=== PATIENT | female | born 1990 | race Caucasian/White ===

== ENCOUNTER 2016-08-20 19:04 | Emergency (ER) | payer OTHER ==
[~2016-08-20] VITALS: Ht 160 cm; Wt 69.8 kg
[~2016-08-20 19:04] MED LIST: LORT7.5T3 PO; Z.0.BCPILL PO
[2016-08-20 19:10] VITALS: BP 150/72; PULSE 120; RESP 12; TEMP 98.6; O2SAT 98
[2016-08-20] MEDS ORDERED: SODIUM CHLOR 0.9% 1000 ML INJ 1,000 ML IV ONE (19:28)
--- NOTE | 2016-08-20 19:34 | PD ---
HPI Chief Complaint: Related Problem Time Seen by Provider: 19:22 Travel History International Travel<30 days: No Contact w/Intl Traveler<30days: No Traveled to known affect area: No History of Present Illness HPI The patient is a 25-year-old female who presents emergency department for and abdominal cramping. The patient's last menstrual cycle was at the beginning of July, she took a test 2 weeks ago which was negative, however, took 3 tests yesterday which were positive. The patient now complains of lower abdominal cramping and also notes intermittent spotting over the last 2 days. The patient denies any nausea, vomiting, or significant abdominal pain. This is her first . The patient recently moved to the local area from [place], [place], has an appointment with an operations administrator in September, however, cannot recall the name of the operations administrator. She does not have a local primary physician. She denies any chronic medical problems, medications, but has had a LEEP performed. PFS Past Medical History Medical History: Denies Significant Hx Past Surgical History Narrative Surgical LEEP procedure Social History Alcohol Use: No Tobacco Use: No Substance Use: No Allergies-Medications (Allergen,Severity, Reaction): Coded Allergies: Penicillin (Verified Allergy, Severe, HIVES, 08/20/16) Amoxicillin (Verified Allergy, Intermediate, 08/20/16) Reported Meds & Prescriptions Reported Meds & Active Scripts Active No Active Prescriptions or Reported Medications Review of Systems Except as stated in HPI: all other systems reviewed are Neg General / Constitutional: No: Fever Cardiovascular: No: Chest Pain or Discomfort Respiratory: No: Shortness of Breath Gastrointestinal: No: Nausea, Vomiting, Abdominal Pain Genitourinary: Positive: Pelvic Pain (cramping), Vaginal Bleeding (spotting), Other (as noted in the history of present illness), No: Dysuria Physical Exam Narrative GENERAL: Awake, alert, pleasant 25-year-old female who appears her stated age and is in no acute respiratory distress. SKIN: Focused skin assessment warm/dry. HEAD: Atraumatic. Normocephalic. EYES: Pupils equal and round. No scleral icterus. No injection or drainage. ENT: No nasal bleeding or discharge. Mucous membranes pink and moist. NECK: Trachea midline. No JVD. GASTROINTESTINAL: Abdomen soft, non-tender, nondistended. No rebound tenderness. Back: No CVA tenderness. MUSCULOSKELETAL: No obvious deformities. No clubbing. No cyanosis. No edema. NEUROLOGICAL: Awake and alert. No obvious cranial nerve deficits. Motor grossly within normal limits. Normal speech. PSYCHIATRIC: Appropriate mood and affect; insight and judgment normal. Data Data Last Documented VS Vital Signs Date Time Temp Pulse Resp B/P Pulse Ox O2 Delivery O2 Flow Rate FiO2 08/20/16 20:12 112 98 08/20/16 19:10 98.6 12 150/72 Orders Beta Hcg (Quant/Titer) (08/20/16 19:28) Complete Rh (08/20/16 19:28) Us Pelvis (Ques Pr/Ect)W Trans (08/20/16 ) Urinalysis - C+S If Indicated (08/20/16 19:28) Sodium Chlor 0.9% 1000 Ml Inj (Ns 1000 M (08/20/16 19:28) Ed Urine Pregnancytest Poc (08/20/16 19:28) Labs Laboratory Tests Test 08/20/16 19:45 Urine Color YELLOW Urine Turbidity CLEAR Urine pH 5.5 Urine Specific [place] 1.027 Urine Protein NEG mg/dL Urine Glucose (UA) NEG mg/dL Urine Ketones NEG mg/dL Urine Occult Blood NEG Urine Nitrite NEG Urine Bilirubin NEG Urine Leukocyte Esterase NEG Urine RBC 0-2 /hpf Urine WBC 0-2 /hpf Urine Squamous Epithelial > 8 /hpf Cells Urine Bacteria FEW /hpf Microscopic Urinalysis Comment CULT NOT INDICATED Human Chorionic Gonadotropin, 884 MIU/ML Quant Blood Type A POSITIVE Rho(D) Type POSITIVE MDM Medical Decision Making Medical Screen Exam Complete: Yes Emergency Medical Condition: Yes Medical Record Reviewed: Yes Interpretation(s) Laboratory Tests Test 08/20/16 19:45 Urine Color YELLOW Urine Turbidity CLEAR Urine pH 5.5 Urine Specific [place] 1.027 Urine Protein NEG mg/dL Urine Glucose (UA) NEG mg/dL Urine Ketones NEG mg/dL Urine Occult Blood NEG Urine Nitrite NEG Urine Bilirubin NEG Urine Leukocyte Esterase NEG Urine RBC 0-2 /hpf Urine WBC 0-2 /hpf Urine Squamous Epithelial > 8 /hpf Cells Urine Bacteria FEW /hpf Microscopic Urinalysis Comment CULT NOT INDICATED Human Chorionic Gonadotropin, 884 MIU/ML Quant Blood Type A POSITIVE Rho(D) Type POSITIVE Ultrasound of the pelvis reveals small cystic area seen in the uterus. These are too small to confirm its gestational sacs. The cyst at the cervix is likely an incidental nabothian cyst. The lack of confirmation of an intrauterine gestation does not rule out an ectopic . Follow-up is recommended. 2.1 cm complex mass in the right ovary likely related to corpus luteum. Differential Diagnosis Differential diagnosis includes , threatened AB, ectopic , UTI , dehydration. Narrative Course Bedside UA test was obtained, was positive. Therefore, quantitative beta hCG was sent to lab for formal ultrasound was ordered to evaluate for IUP versus ectopic . UA was sent to lab. The patient was administered 1 L of IV fluids. The patient's Rh status is a positive, therefore, no indication for RhoGAM. Beta hCG is 884. Ultrasound reveals small cystic area seen in the uterus, too small to confirm if they are gestational sacs. Therefore, patient will need repeat beta hCG in 72 hours. Return if symptoms worsen or progress. The patient was advised this could be a threatened , normal , or ectopic . Diagnosis Primary Impression: Threatened Patient Instructions: General Instructions Additional Instructions: Repeat beta hCG in 72 hours. vitamin daily. Follow-up with her operations administrator. Return immediately if symptoms worsen or progress. Med/Other Pt SpecificInfo: No Change to Meds Scripts No Active Prescriptions or Reported Meds Disposition: 01 DISCHARGE HOME Condition: Stable Dave Mane MD August 20, 2016 19:34
[2016-08-20 19:58] LABS: BLOOD, URINE NEG (NEG); GLUCOSE,URINE NEG (NEG); KETONE, URINE NEG (NEG); NITRITE,URINE NEG (NEG); PH, URINE 5.5 (5.0-8.5)
[2016-08-20 20:03] LABS: URINE COLOR YELLOW (YELLW/STRAW); WBC, URINE 0-2 /hpf (0-5)
[2016-08-20 20:04] LABS: BACTERIA, URINE FEW /hpf; COMMENT (UR) CULT NOT INDICATED; CULTURE IF INDICATED CULT NOT INDICATED; RBC, URINE 0-2 /hpf (0-3); SQUAMOUS EPITHELIAL CELL URINE > 8 /hpf (0-5)
[2016-08-20 20:12] VITALS: PULSE 112; O2SAT 98
[2016-08-20 20:16] LABS: BETA HCG QUANT 884 MIU/ML (0-5)
--- NOTE | 2016-08-20 21:28 | RADHPO ---
EXAM DATE/TIME: 08/20/2016 20:43 [facility] COMPARISON: No previous studies available for comparison. INDICATIONS : Pelvic cramping. LAB(S): Beta-hC MEDICAL HISTORY : . SURGICAL HISTORY : None. ENCOUNTER: Initial ACUITY: 1 day PAIN SCORE: 2/10 LOCATION: Bilateral pelvis MEASUREMENTS: UTERUS: 8.0 x 4.0 x 5.9 cm ENDOMETRIAL STRIPE: >20 mm RIGHT OVARY: 4.1 x 2.2 x 2.0 cm LEFT OVARY: 3.9 x 1.5 x 2.6 cm FREE FLUID: No FINDINGS: UTERUS: There are two 0.4 cm cysts seen in the uterus. One is in the endometrial cavity. The other one is at the cervix. An embryonic poles and yolk sacs are not seen. RIGHT OVARY: There is a 2.1 x 1.7 x 2.1 cm hypoechoic area seen in the right ovary. LEFT OVARY: Ovary contains no mass or significant cystic lesion. MISCELLANEOUS: No free fluid. CONCLUSION: 1. Small cystic area seen in the uterus. These are too small to confirm its gestational sacs. The cys t at the cervix is likely an incidental nabothian cyst. The lack of confirmation of an intrauterine gestation tati not rule out an ectopic . Follow up is recommended. 2. 2.1 cm complex mass in the right ovary likely related to a corpus luteum. Merlin Mcdonnell MD on August 20, 2016 at 21:22 Board Certified Radiologist. This report was verified electronically.
[2016-08-20 21:32] VITALS: BP 103/55; PULSE 89; RESP 16; O2SAT 97
== END 2016-08-20 21:44 | disposition home or self-care (01) ==
LOC: PHED 19:04
DX: O20.0 Threatened abortion (principal); R10.9 Unspecified abdominal pain; Z98.890 Other specified postprocedural states
CPT/HCPCS: 76700; 76817; 81001; 84702; 84703; 86901; 96360; 99284; J7030

== ENCOUNTER 2016-08-24 13:26 | Emergency (ER) | payer OTHER ==
[~2016-08-24] VITALS: Ht 160 cm; Wt 71.5 kg
[2016-08-24 13:30] VITALS: BP 116/78; PULSE 112; RESP 17; TEMP 98.7; O2SAT 97
--- NOTE | 2016-08-24 13:39 | PD ---
HPI Chief Complaint: Abnormal Results Time Seen by Provider: 13:37 Travel History International Travel<30 days: No Contact w/Intl Traveler<30days: No Traveled to known affect area: No History of Present Illness HPI 25-year-old female here with first , and recent visit [address] Mane who recommended follow-up hCG to ensure increasing hCG numbers and decreasing symptoms. 3 days ago the patient's symptoms including cramping, but she states now she has no pain or other symptoms. Patient is scheduled for follow-up with [facility] on September 08. Her hCG 3 days ago was 884. Her urine was positive at that time. Ultrasound was indeterminate for gestational sac. There is a risk for demise, ectopic . Patient blood type is positive. She is allergic to amoxicillin and penicillin. [facility] Past Medical History ?: LMP: 07/11/16 Social History Alcohol Use: No Tobacco Use: No Substance Use: No Allergies-Medications (Allergen,Severity, Reaction): Coded Allergies: Penicillin (Verified Allergy, Severe, HIVES, 08/24/16) Amoxicillin (Verified Allergy, Mild, HIVES, 08/24/16) Reported Meds & Prescriptions Reported Meds & Active Scripts Active No Active Prescriptions or Reported Medications Review of Systems Except as stated in HPI: all other systems reviewed are Neg General / Constitutional: No: Fever Eyes: No: Visual changes HENT: No: Headaches Cardiovascular: No: Chest Pain or Discomfort Respiratory: No: Shortness of Breath Gastrointestinal: No: Abdominal Pain Genitourinary: No: Dysuria Musculoskeletal: No: Pain Skin: No Rash Neurologic: No: Weakness Psychiatric: No: Depression Endocrine: No: Polydipsia Hematologic/Lymphatic: No: Easy Bruising Physical Exam Narrative GENERAL:Cheerful and in no acute distress SKIN: Warm and dry. Normal color. Normal turgor. HEAD: Atraumatic. Normocephalic. EYES: Pupils equal and round. No scleral icterus. No injection or drainage. ENT: No nasal bleeding or discharge. Mucous membranes pink and moist. NECK: Trachea midline. Supple and nontender. CARDIOVASCULAR: Regular rate and rhythm. RESPIRATORY: No accessory muscle use. Clear to auscultation. Breath sounds equal bilaterally. GASTROINTESTINAL: Abdomen soft, non-tender, nondistended. Hepatic and splenic margins not palpable. MUSCULOSKELETAL: Extremities without clubbing, cyanosis, or edema. No obvious deformities. NEUROLOGICAL: Awake and alert. No obvious cranial nerve deficits. Motor grossly within normal limits. Five out of 5 muscle strength in the arms and legs. Normal speech. PSYCHIATRIC: Appropriate mood and affect; insight and judgment normal. Data Data Last Documented VS Vital Signs Date Time Temp Pulse Resp B/P Pulse Ox O2 Delivery O2 Flow Rate FiO2 08/24/16 13:30 98.7 112 17 116/78 97 Orders Beta Hcg (Quant/Titer) (08/24/16 13:40) Labs Laboratory Tests Test 08/24/16 13:55 Human Chorionic Gonadotropin, 3198 MIU/ML Quant MDM Medical Decision Making Medical Screen Exam Complete: Yes Emergency Medical Condition: Yes Differential Diagnosis . Need for blood work. Questionable . Narrative Course Patient is medically stable and without complaint on exam. Repeat hCG is ordered. Repeat hCG is 3198. Patient to follow with [facility] as scheduled on September 08. Patient has no need to follow-up here unless she has increased cramping or other symptoms. Diagnosis Primary Impression: Qualified Code: Z3A.01 - Less than 8 weeks gestation of Referrals: Executive Creative Director Patient Instructions: General Instructions Additional Instructions: Patient is medically stable and without complaint on exam. Repeat hCG is ordered. Repeat hCG is 3198. Patient to follow with [facility] as scheduled on September 08. Patient has no need to follow-up here unless she has increased cramping or other symptoms. Med/Other Pt SpecificInfo: Prescription(s) given Scripts No Active Prescriptions or Reported Meds Disposition: 01 DISCHARGE HOME Condition: Stable Gabino Machuca August 24, 2016 13:39
[2016-08-24 14:39] LABS: BETA HCG QUANT 3198 MIU/ML (0-5)
== END 2016-08-24 15:00 | disposition home or self-care (01) ==
LOC: PHEFT 13:26
DX: Z34.91 Encounter for supervision of normal pregnancy, unspecified, first trimester (principal); Z32.01 Encounter for pregnancy test, result positive; Z3A.01 Less than 8 weeks gestation of pregnancy
CPT/HCPCS: 84702; 99283

== ENCOUNTER 2016-12-23 10:19 | Emergency (ER) | payer OTHER ==
[2016-12-23] MEDS ORDERED: PROM25TA10 PO (11:08)
--- NOTE | 2016-12-23 11:09 | PD ---
HPI Chief Complaint Nausea vomiting diarrhea Date Seen: Dec 23, 2016 Time Seen: 11:00 Travel History International Travel<30 Days: No Contact w/Intl Traveler<30Days: No Known Affected Area: No History of Present Illness HPI 26-year-old white female at [address] Palomino for care presents complaining of nausea vomiting and diarrhea for one day, states that yesterday she was fine before that finding has not been a long-term thing, she feels baby moves heart tones are good and no contractions seen, denies bleeding or leakage of fluid Weeks Gestation: 22 Para: 0 : 1 History Social History Alcohol Use: No Tobacco Use: No Substance Abuse: No Allergies-Medications (Allergen,Severity, Reaction): Coded Allergies: penicillin G (Unverified Allergy, Severe, HIVES, 11/15/16) amoxicillin (Unverified Allergy, Mild, HIVES, 11/15/16) Home Meds No Active Prescriptions or Reported Meds Review of Systems General / Constitutional: No: Fever, Weight Gain, Chills, Other Eyes: No: Diploplia, Blurred Vision, Visual changes, Pain, Photophobia HENT: No: Headaches, Vertigo, Lightheadedness Cardiovascular: No: Irregular Rhythm, Chest Pain or Discomfort, Palpitations, Tachycardia, Syncope, Varicosities, Edema, Cyanosis Respiratory: No: Cough, Short of Breath, Other Gastrointestinal: Nausea, Vomiting, Diarrhea Genitourinary: No: Decreased Urinary Output, Oliguria Musculoskeletal: No: Limited ROM, Weakness, Cramping, Edema, Pain Skin: No Rash, No Itching, No Dryness, No Lumps, No Change in Pigmentation, No Change in Nails, No Alopecia, No Lesions Neurologic: No: Weakness, Dizziness, Syncope, Focal Abnormalities, Coordination Problem, Headache, Slurred Speech, Seizures Psychiatric: No: Depression, Suicidal Ideations, Homicidal Ideation Endocrine: No: Heat Intolerance, Cold Intolerance, Polydipsia, Polyuria, Other Physical Exam Narrative GENERAL: Well-nourished, well-developed patient. SKIN: Warm and dry. HEAD: Normocephalic and atraumatic. EYES: No scleral icterus. No injection or drainage. ENT: No nasal drainage noted. Mucous membranes pink. Airway patent. NECK: Supple, trachea midline. No JVD. CARDIOVASCULAR: Regular rate and rhythm without murmurs, gallops, or rubs. RESPIRATORY: Breath sounds equal bilaterally. No accessory muscle use. BREASTS: Bilateral exam showed no masses , no retractions, no nipple discharge. ABDOMEN/GI: Abdomen soft, non-tender, bowel sounds present, no rebound, no guarding Gravid to [22-] weeks size Fundal Height: [at umbilicus-] Membranes: [intact ] Uterine Contractions: [none-] FHT's: 140s EXTREMITIES: No cyanosis or edema. BACK: Nontender without obvious deformity. No CVA tenderness. NEUROLOGICAL: Awake and alert. Motor and sensory grossly within normal limits. Five out of 5 muscle strength in all muscle groups. Normal speech. Data Data Orders Orders Vital Signs (Adult) .ON ADMISSION (12/23/16 10:58) ^ Labor Status (12/23/16 10:58) Lactated Ringer's 1000 Ml Inj (Lr 1000 M (12/23/16 10:58) Ondansetron Inj (Zofran Inj) (12/23/16 11:00) Metoclopramide Inj (Reglan Inj) (12/23/16 11:00) MDM Interpretation(s) 26-year-old white female at 22 weeks with nausea vomiting diarrhea for one day. Patient reports a daycare and postop all kinds of toddler's and there germs viruses, she has no bleeding or leakage of fluid heart tones 140s no pain in the abdomen, urine dip done and results pending at the time dictation will treat accordingly. Plan to hydrate patient with a liter of LR IV Zofran and Reglan home with a prescription for Phenergan by mouth Plan Plan to hydrate as above the discharge home with oral Phenergan, she can use [id number] Imodium A-D for diarrhea when necessary. Should follow-up with Dr. Palomino usual fashion Diagnosis Diagnosis: Primary Impression: Nausea and vomiting during Additional Impression: Diarrhea Disposition: DISCHARGE HOME Condition: Stable Scripts Promethazine (Phenergan) 25 Mg Tablet 25 MG PO Q6H Y for NAUSEA OR VOMITING, #20 TAB 0 Refills Prov: Fredy Lopez II, MD 12/23/16 Fredy Lopez II, MD Dec 23, 2016 11:09
[2016-12-23] MEDS ORDERED: LACTATED RINGER'S 1000 ML INJ 1,000 ML IV SCH (11:30)
[2016-12-23] MEDS ORDERED: ONDANSETRON HCL 4 MG/2 ML VIAL IV ONE (12:00)
[2016-12-23] MEDS ORDERED: METOCLOPRAMIDE HCL 10 MG/2 ML VIAL IV PUSH ONE (12:00)
== END 2016-12-23 13:19 | disposition home or self-care (01) ==
LOC: HOBED 10:19
DX: O21.2 Late vomiting of pregnancy (principal); R19.7 Diarrhea, unspecified; Z3A.22 22 weeks gestation of pregnancy
CPT/HCPCS: 96361; 96374; 96375; 99284; J2405; J2765; J7120

== ENCOUNTER 2017-01-25 16:37 | Emergency (ER) | payer OTHER ==
[~2017-01-25 16:37] MED LIST changes: -LORT7.5T3 PO; +PROM25TA10 PO; -Z.0.BCPILL PO
--- NOTE | 2017-01-25 17:28 | PD ---
HPI Chief Complaint pelvic cramping Date Seen: Jan 25, 2017 Time Seen: 17:23 Travel History International Travel<30 Days: No Contact w/Intl Traveler<30Days: No Known Affected Area: No History of Present Illness HPI 26 yo at [id number] c/o pelvic cramping since this am when she had to attend divorce court. Admits to mental stress today with frequent stools after each episode of cramping. 4 episodes total today. Denies vag bleeding, vag discharge. Good movement. Eating and drinking well. Denies contractions. Weeks Gestation: 27 Para: 0 : 1 History Past Medical History Medical History: Denies Significant Hx Past Surgical History Surgical History: No Previous Surgery Family History Family History: Negative Social History Alcohol Use: No Tobacco Use: No Substance Abuse: No Allergies-Medications (Allergen,Severity, Reaction): Coded Allergies: penicillin G (Unverified Allergy, Severe, HIVES, 11/15/16) amoxicillin (Unverified Allergy, Mild, HIVES, 11/15/16) Home Meds Active Scripts Promethazine (Phenergan) 25 Mg Tablet, 25 MG PO Q6H Y for NAUSEA OR VOMITING, # 20 TAB 0 Refills Prov:Fredy Lopez II, MD 12/23/16 Review of Systems Except as stated in HPI: all other systems reviewed are Neg Physical Exam Narrative GENERAL: Well-nourished, well-developed patient. SKIN: Warm and dry. HEAD: Normocephalic and atraumatic. EYES: No scleral icterus. No injection or drainage. ENT: No nasal drainage noted. Mucous membranes pink. Airway patent. NECK: Supple, trachea midline. No JVD. CARDIOVASCULAR: Regular rate and rhythm without murmurs, gallops, or rubs. RESPIRATORY: Breath sounds equal bilaterally. No accessory muscle use. ABDOMEN/GI: Abdomen soft, non-tender, bowel sounds present, no rebound, no guarding Gravid to [28-] weeks size Fundal Height: [-] GENITOURINARY: External Genitalia: intact and normal in appearance BUS glands: [-nl] Cervix: [-post] Dilatation: [-closed] Effacement: [-0] Station: [-4] Presentation: [vtx-] Membranes: [intact Uterine Contractions: [-absemt] FHT's: Category: [1-] Baseline: [145-] Reactive: [-mod] Variability: [mod-] Decels: [-absent] EXTREMITIES: No cyanosis or edema. BACK: Nontender without obvious deformity. No CVA tenderness. NEUROLOGICAL: Awake and alert. Motor and sensory grossly within normal limits. Five out of 5 muscle strength in all muscle groups. Normal speech. Data Data Vital Signs Reviewed: Yes MDM Medical Record Reviewed: Yes Plan 26yo with mild GI upset following stressful situation this am. No signs of early contractions or labor Recommended relaxation techniques, hydration, rest Diagnosis Diagnosis: Primary Impression: Pelvic pain affecting in second trimester, antepartum Additional Impression: 27 weeks gestation of Disposition: 01 DISCHARGE HOME Bruna Elmore MD Jan 25, 2017 17:28
== END 2017-01-25 17:47 | disposition home or self-care (01) ==
LOC: HOBED 16:41
DX: O26.892 Other specified pregnancy related conditions, second trimester (principal); R10.2 Pelvic and perineal pain; Z3A.27 27 weeks gestation of pregnancy; Z73.3 Stress, not elsewhere classified; Z88.0 Allergy status to penicillin
CPT/HCPCS: 99283

== ENCOUNTER 2017-02-27 13:20 | Emergency (ER) | payer OTHER ==
[2017-02-27 13:34] VITALS: BP 97/53; PULSE 99; RESP 20; TEMP 97.9; O2SAT 98
--- NOTE | 2017-02-27 14:52 | PD ---
HPI Chief Complaint: Injury Time Seen by Provider: 14:46 Travel History International Travel<30 days: No Contact w/Intl Traveler<30days: No Traveled to known affect area: No History of Present Illness HPI 26-year-old female presents to the emergency department for evaluation of left foot injury that occurred around 10 PM last night. Patient states she kicked a baseboard causing pain to her left fifth toe. Patient is 31 weeks . She denies any issues with . No leakage of fluid or vaginal discharge. No abdominal pain or cramping. He should states the fetus is moving normally. No fevers or chills. She has no other injury. Patient has been ambulatory. She takes Zofran as needed for nausea. She states that no chronic medical problems. Severity is mild. Exacerbating factors movement and ambulation. Alleviating factors lying still, rest. PFSH Past Medical History Diminished Hearing: No ?: LMP: 8 MONTHS : 1 Para: 0 Social History Alcohol Use: No Tobacco Use: No Substance Use: No Allergies-Medications (Allergen,Severity, Reaction): Coded Allergies: penicillin G (Unverified Allergy, Severe, HIVES, 11/15/16) amoxicillin (Unverified Allergy, Mild, HIVES, 11/15/16) Reported Meds & Prescriptions Reported Meds & Active Scripts Active Phenergan (Promethazine HCl) 25 Mg Tablet 25 Mg PO Q6H PRN Review of Systems Except as stated in HPI: all other systems reviewed are Neg Physical Exam Narrative GENERAL: Well-nourished, well-developed female patient, afebrile. SKIN: Focused skin assessment warm/dry. Patient is ecchymosis noted to left dorsal fifth toe. HEAD: Normocephalic. Atraumatic. EYES: No scleral icterus. No injection or drainage. NECK: Supple, trachea midline. No JVD or lymphadenopathy. CARDIOVASCULAR: Regular rate and rhythm without murmurs, gallops, or rubs. Left pedal pulses 2+ RESPIRATORY: Breath sounds equal bilaterally. No accessory muscle use. Lungs sounds are clear to auscultation GASTROINTESTINAL: Abdomen soft, non-tender, nondistended. MUSCULOSKELETAL: No cyanosis, or edema. Tenderness over left fifth toe. BACK: Nontender without obvious deformity. No CVA tenderness. Data Data Last Documented VS Vital Signs Date Time Temp Pulse Resp B/P (MAP) Pulse Ox O2 Delivery O2 Flow Rate FiO2 02/27/17 13:34 97.9 99 20 97/53 (68) 98 Orders Orders Foot, Complete ([id number]) (02/27/17 ) Splint Or Brace Apply/Monitor (02/27/17 16:17) [facility] Medical Decision Making Medical Screen Exam Complete: Yes Emergency Medical Condition: Yes Medical Record Reviewed: Yes Interpretation(s) X-ray of the left foot - CONCLUSION: 1. Acute fracture involving the proximal phalanx of the fifth toe as detailed above. Differential Diagnosis Fracture versus contusion versus sprain Narrative Course 26-year-old female presents to the emergency department for evaluation of left fifth toe injury that occurred last night at 10 PM. X-ray of the left foot is ordered and pending. Patient declines pain medication. Ice pack is applied. X-ray of the left foot shows Acute fracture involving the proximal phalanx of the fifth toe as detailed above. Left fifth toe is brian taped and postop shoe is applied. Patient is a take Tylenol every 4 hours as needed for pain and follow-up with a primary care physician. The patient was discharged in stable condition with instructions, including return instructions and follow up instructions. Diagnosis Primary Impression: Toe fracture, right Qualified Codes: S92.514A - Nondisplaced fracture of proximal phalanx of right lesser toe(s), initial encounter for closed fracture Referrals: Primary Care Physician call for appointment Patient Instructions: General Instructions, Toe Fracture (ED) Additional Instructions: Wear brian tape and postop shoe. Elevate. Ice for 20 minutes 4-5 times daily. Tylenol every 4 hours as needed for pain. Follow-up with your primary care physician. Return to the emergency department for any acute worsening of symptoms. Med/Other Pt SpecificInfo: No Change to Meds Disposition: 01 DISCHARGE HOME Condition: Stable Aguilar,Cassi CHRISTIANSEN Feb 27, 2017 14:52
--- NOTE | 2017-02-27 15:55 | RADRPT ---
EXAM DATE/TIME: 02/27/2017 15:01 [facility] COMPARISON: No previous studies available for comparison. INDICATIONS : Left foot pain. MEDICAL HISTORY : None. SURGICAL HISTORY : None. ENCOUNTER: Initial ACUITY: 2 days PAIN SCORE: 5/10 LOCATION: Left foot. FINDINGS: 3 views of the left foot reveal an acute fracture involving the base of the proximal phalanx of the f ifth toe. This has intra-articular extension. No significant angulation or distraction. Remaining str uctures are intact. Mild soft tissue swelling. CONCLUSION: 1. Acute fracture involving the proximal phalanx of the fifth toe as detailed above. Enio Reddy Jr., MD on February 27, 2017 at 15:52 Board Certified Radiologist. This report was verified electronically.
== END 2017-02-27 17:01 | disposition home or self-care (01) ==
LOC: PHEFT 13:20
DX: O99.89 Other specified diseases and conditions complicating pregnancy, childbirth and the puerperium (principal); S92.515A Nondisplaced fracture of proximal phalanx of left lesser toe(s), initial encounter for closed fracture; W22.09XA Striking against other stationary object, initial encounter; Z3A.31 31 weeks gestation of pregnancy
CPT/HCPCS: 73630; 99283; L3260

== ENCOUNTER → 2017-03-30 | Outpatient (CLI) | payer OTHER | LOC: HPND 13:40 | PROVIDERS: ATTEND Obstetrics & Gynecology | DX: O35.8XX0 Maternal care for other (suspected) fetal abnormality and damage, not applicable or unspecified (principal) | CPT/HCPCS: 76816 ==

== ENCOUNTER 2017-04-28 05:54 | Inpatient (IN) | payer OTHER ==
[2017-04-28] VITALS (62 sets, daily range): BP systolic 91–137; BP diastolic 44–88; PULSE 58–219; RESP 16–18; TEMP 97.7–100; O2SAT 96
[2017-04-28] MEDS ORDERED: LACTATED RINGER'S 1000 ML INJ 1,000 ML IV PRN (06:48)
[2017-04-28] MEDS ORDERED: LACTATED RINGER'S 1000 ML INJ 1,000 ML IV SCH (06:48)
--- NOTE | 2017-04-28 06:54 | HHI.HP ---
HPI Chief Complaint Contractions Date Seen: Apr 28, 2017 Time Seen: 06:45 Travel History International Travel<30 Days: No Contact w/Intl Traveler<30Days: No Known Affected Area: No History of Present Illness HPI Patient is 26-year-old white female at 40 - [address] Palomino presents in active labor, heart tones are reactive she is yael every 2-3 minutes Weeks Gestation: 40 Para: 0 : 1 History Past Medical History Narrative Medical Gestational diabetes diet controlled Social History Alcohol Use: No Tobacco Use: No Substance Abuse: No Allergies-Medications (Allergen,Severity, Reaction): Coded Allergies: penicillin G (Unverified Allergy, Severe, HIVES, 11/15/16) amoxicillin (Unverified Allergy, Mild, HIVES, 11/15/16) Home Meds Active Scripts Promethazine (Phenergan) 25 Mg Tablet, 25 MG PO Q6H Y for NAUSEA OR VOMITING, # 20 TAB 0 Refills Prov:Fredy Lopez II, MD 12/23/16 Review of Systems General / Constitutional: No: Fever, Weight Gain, Chills, Other Eyes: No: Diploplia, Blurred Vision, Visual changes, Pain, Photophobia HENT: No: Headaches, Vertigo, Lightheadedness Cardiovascular: No: Irregular Rhythm, Chest Pain or Discomfort, Palpitations, Tachycardia, Syncope, Varicosities, Edema, Cyanosis Respiratory: No: Cough, Short of Breath, Other Gastrointestinal: Abdominal Pain, No: Nausea, Vomiting, Diarrhea Genitourinary: Vaginal Bleeding, No: Decreased Urinary Output, Oliguria Musculoskeletal: No: Limited ROM, Weakness, Cramping, Edema, Pain Skin: No Rash, No Itching, No Dryness, No Lumps, No Change in Pigmentation, No Change in Nails, No Alopecia, No Lesions Neurologic: No: Weakness, Dizziness, Syncope, Focal Abnormalities, Coordination Problem, Headache, Slurred Speech, Seizures Psychiatric: No: Depression, Suicidal Ideations, Homicidal Ideation Endocrine: No: Heat Intolerance, Cold Intolerance, Polydipsia, Polyuria, Other Physical Exam Narrative GENERAL: Well-nourished, well-developed patient. SKIN: Warm and dry. HEAD: Normocephalic and atraumatic. EYES: No scleral icterus. No injection or drainage. ENT: No nasal drainage noted. Mucous membranes pink. Airway patent. NECK: Supple, trachea midline. No JVD. CARDIOVASCULAR: Regular rate and rhythm without murmurs, gallops, or rubs. RESPIRATORY: Breath sounds equal bilaterally. No accessory muscle use. BREASTS: Bilateral exam showed no masses , no retractions, no nipple discharge. ABDOMEN/GI: Abdomen soft, non-tender, bowel sounds present, no rebound, no guarding Gravid to [-40] weeks size Fundal Height: [40-] GENITOURINARY: External Genitalia: intact and normal in appearance BUS glands: [-] Cervix: [-] Dilatation: [-8] Effacement: [-100] Station: [-1] Presentation: [vtx-] Membranes: [intact ] Uterine Contractions: [-q 2 min] FHT's: Category: [1-] Baseline: [-133] Reactive: [R-] Variability: [-mod] Decels: [-none] EXTREMITIES: No cyanosis or edema. BACK: Nontender without obvious deformity. No CVA tenderness. NEUROLOGICAL: Awake and alert. Motor and sensory grossly within normal limits. Five out of 5 muscle strength in all muscle groups. Normal speech. Caprini VTE Risk Assessment Caprini VTE Risk Assessment: No/Low Risk (score <= 1) Caprini Risk Assessment Model Point Value = 1 Point Value = 2 Point Value = 3 Point Value = 5 Age 41-60 Minor surgery BMI > 25 kg/m2 Swollen legs Varicose veins or History of unexplained or recurrent spontaneous Oral contraceptives or hormone replacement Sepsis (< 1 month) Serious lung disease, including pneumonia (< 1 month) Abnormal pulmonary function Acute myocardial infarction Congestive heart failure (< 1 month) History of inflammatory bowel disease Medical patient at bed rest Age 61-74 Arthroscopic surgery Major open surgery (> 45 min) Laparoscopic surgery (> 45 min) Malignancy Confined to bed (> 72 hours) Immobilizing plaster cast Central venous access Age >= 75 History of VTE Family history of VTE Factor V Leiden Prothrombin [id number] Lupus anticoagulant Anticardiolipin antibodies Elevated serum homocysteine Heparin-induced thrombocytopenia Other congenital or acquired thrombophilia Stroke (< 1 month) Elective arthroplasty Hip, pelvis, or leg fracture Acute spinal cord injury (< 1 month) Prophylaxis Regimen Total Risk Factor Score Risk Level Prophylaxis Regimen 0-1 Low Early ambulation 2 Moderate Order ONE of the following: *Sequential Compression Device (SCD) *Heparin 5000 units SQ BID 3-4 Higher Order ONE of the following medications: *Heparin 5000 units SQ TID *Enoxaparin/Lovenox 40 mg SQ daily (WT < 150 kg, CrCl > 30 mL/min) *Enoxaparin/Lovenox 30 mg SQ daily (WT < 150 kg, CrCl > 10-29 mL/min) *Enoxaparin/Lovenox 30 mg SQ BID (WT < 150 kg, CrCl > 30 mL/min) AND/OR *Sequential Compression Device (SCD) 5 or more Highest Order ONE of the following medications: *Heparin 5000 units SQ TID (Preferred with Epidurals) *Enoxaparin/Lovenox 40 mg SQ daily (WT < 150 kg, CrCl > 30 mL/min) *Enoxaparin/Lovenox 30 mg SQ daily (WT < 150 kg, CrCl > 10-29 mL/min) *Enoxaparin/Lovenox 30 mg SQ BID (WT < 150 kg, CrCl > 30 mL/min) AND *Sequential Compression Device (SCD) Data Data Orders Orders Admit To Inpatient (04/28/17 ) Vital Signs (Adult) .Per protocol (04/28/17 06:48) Heart (04/28/17 06:48) Amnioinfusion (04/28/17 06:48) Urinary Catheter Management .ONCE (04/28/17 06:48) Diet Liquid (04/28/17 Breakfast) Lactated Ringer's 1000 Ml Inj (Lr 1000 M (04/28/17 06:48) Lactated Ringer's 1000 Ml Inj (Lr 1000 M (04/28/17 06:48) Sodium Chlorid 0.9% 500 Ml Inj (Ns 500 M (04/28/17 07:00) Sodium Chlor 0.9% 1000 Ml Inj (Ns 1000 M (04/28/17 07:08) Lidocaine 1% Inj (50 Ml) (Xylocaine 1% I (04/28/17 07:00) Citric Acid-Sodium Citrate Liq (Bicitra (04/28/17 07:00) Fentanyl Inj (Fentanyl Inj) (04/28/17 07:00) Fentanyl Inj (Fentanyl Inj) (04/28/17 07:00) Complete Blood Count With Diff (04/28/17 06:48) Hold Clot (1/26/18 06:48) Abo/Rh Blood Type (04/28/17 06:48) Urinalysis - C+S If Indicated (04/28/17 06:48) Drug Screen, Random Urine (04/28/17 06:48) Resp Oxygen Non Rebreathe Mask (04/28/17 ) ^ Epidural / Intrathecal Infus (04/28/17 06:48) Oxytocin 30 Units-500ml Premix (Pitocin (04/28/17 07:00) Lidocaine 1% Inj (50 Ml) (Xylocaine 1% I (04/28/17 07:00) Light Mineral Oil (Muri-Lube Oil) (04/28/17 07:00) Group B Strep: Negative Assessment/Plan Assessment and Plan Patient is 26-year-old white female at 40 -41 weeks presents complaining of labor contractions patient of Dr. Palomino's. heart tones are reactive and she is yael every 2 minutes. Cervix is 8 cm dilated 100% effaced and -1 Plan is admission to the hospital labor management and anticipate vaginal delivery with her OB provider Fredy Lopez II, MD Apr 28, 2017 06:54
[2017-04-28] MEDS ORDERED: LIDOCAINE HCL 1% 50 ML VIAL INFIL PRN (07:00)
[2017-04-28] MEDS ORDERED: OXYTOCIN 30 UNITS-500ML PREMIX 500 ML IV ONE ×2 (07:00→15:30)
[2017-04-28] MEDS ORDERED: MINERAL OIL 10 ML VIAL TOPICAL PRN (07:00)
[2017-04-28] MEDS ORDERED: SODIUM CHLORID 0.9% 500 ML INJ 500 ML IV PRN (07:00)
[2017-04-28] MEDS ORDERED: LIDOCAINE HCL 1% 50 ML VIAL I-DERMAL PRN (07:00)
[2017-04-28] MEDS ORDERED: CITRIC ACID-SODIUM CITRATE LIQ 30 ML UDC PO SCH (07:00)
[2017-04-28] MEDS ORDERED: SODIUM CHLOR 0.9% 1000 ML INJ 1,000 ML IV PRN (07:08)
[2017-04-28 07:16] LABS: AUTOMATED NEUTROPHIL # 8.8 TH/MM3 (1.8-7.7); BASOPHIL # 0.1 TH/MM3 (0-0.2); BASOPHIL % 0.5 % (0.0-2.0); EOSINOPHIL # 0.1 TH/MM3 (0-0.4); EOSINOPHIL % 0.5 % (0.0-4.0); HEMATOCRIT 36.7 % (35.0-46.0); HEMOGLOBIN 12.2 GM/DL (11.6-15.3); LYMPHOCYTE # 1.8 TH/MM3 (1.0-4.8); MEAN CELL VOLUME 78.5 FL (80.0-100.0); MEAN CORPUSCULAR HGB CONC 33.1 % (32.0-36.0); MEAN PLATELET VOLUME 10.8 FL (7.0-11.0); MONO % 6.7 % (0.0-8.0); MONOCYTE # 0.8 TH/MM3 (0-0.9); NEUT % 76.3 % (16.0-70.0); PLATELET COUNT 182 TH/MM3 (150-450); RED BLOOD COUNT 4.67 MIL/MM3 (4.00-5.30); RED CELL DISTRIBUTION WIDTH 15.6 % (11.6-17.2); WHITE BLOOD COUNT 11.5 TH/MM3 (4.0-11.0)
[2017-04-28 07:37] LABS: BACTERIA, URINE OCC /hpf; BILIRUBIN, URINE NEG (NEG); BLOOD, URINE LARGE (NEG); GLUCOSE,URINE NEG (NEG); KETONE, URINE NEG (NEG); MUCUS URINE FEW /lpf (OCC); NITRITE,URINE NEG (NEG); PH, URINE 6.5 (5.0-8.5); SQUAMOUS EPITHELIAL CELL URINE 3 /hpf (0-5); URINE COLOR YELLOW (YELLW/STRAW); URINE LEUKOCYTE ESTERASE SMALL (NEG); WHITE BLOOD CELL CLUMPS FEW
[2017-04-28] MEDS ORDERED: fentaNYL 2MCG-BUPIV 0.125% INJ 100 ML ONE (07:40)
[2017-04-28] MEDS ORDERED: DO NOT ADMINISTER ANTICOAGULANTS PRN (09:00)
[2017-04-28] MEDS ORDERED: ePHEDrine/NS 25 MG/5 ML SYRINGE IV PUSH PRN (09:00)
[2017-04-28] MEDS ORDERED: NO SYSTEM NARCOTICS PRN (09:00)
[2017-04-28] MEDS ORDERED: fentaNYL 2MCG-BUPIV 0.125% 100 ML EPIDURAL SCH (09:00)
[2017-04-28] MEDS ORDERED: OXYTOCIN 30 UNITS-500ML PREMIX 500 ML IV PRN (12:30)
--- NOTE | 2017-04-28 15:28 | PD.OB.DELI ---
Weeks gestation: 40 Gest age assessed date: Apr 28, 2017 Pt started active labor?: Yes Medical induction of labor?: No Artificial rupture of membrane: Yes Anesthesia: Epidural Episiotomy: Midline Vaginal Delivery: Vacuum Nuchal Cord: None Delayed cord clamping (45 sec): No Infant: Female Delivery date: Apr 28, 2017 Delivery time: 14:47 One Minute : 8 Five Minute : 9 Weight: 7/7 Placenta: Spontaneous delivery, Intact, 3 vessel cord Laceration: 2 deg Repair: Vicryl running Estimated blood loss: 300 Additional Information Delivery of Argenis Had pushed almost 3 hours and felt the baby was not large. [place] the baby was OA and put the large vaccuum on thru 4 uterine contractions til she was well Pushed the baby out after 2 more contractions over a small second degree MLE. Meconium noted. Placenta SI with meconium staining. Baby did very well. Marcell Palomino MD Apr 28, 2017 15:28
[2017-04-28] MEDS ORDERED: ALUMINUM/MAGNESIUM/SIMETH 30 ML CUP PO PRN (15:30)
[2017-04-28] MEDS ORDERED: SODIUM CHLORIDE 0.9% FLUSH 10 ML FLUSH IV FLUSH PRN (15:30)
[2017-04-28] MEDS ORDERED: WITCH HAZEL 50%/GLYCERIN 12.5% 40 PAD JAR TOPICAL PRN (15:30)
[2017-04-28] MEDS ORDERED: OXYTOCIN 30 UNITS-500ML PREMIX 500 ML IV SCH (15:30)
[2017-04-28] MEDS ORDERED: BENZOCAINE 20% TOPICAL SPRAY 60 ML CAN TOPICAL PRN (15:30)
[2017-04-28] MEDS ORDERED: oxyCODONE/ACETAMINOPHEN 5 MG/325 MG TAB PO PRN ×2 (15:30)
[2017-04-28] MEDS ORDERED: ZOLPIDEM TARTRATE 5 MG TAB PO PRN (15:30)
[2017-04-28] MEDS ORDERED: ONDANSETRON ODT 4 MG TAB PO PRN (15:30)
[2017-04-28] MEDS ORDERED: DOCUSATE SODIUM 50 MG/SENNA 8.6 MG TAB PO PRN (15:30)
[2017-04-28] MEDS ORDERED: ACETAMINOPHEN 325 MG TAB PO PRN (15:30)
[2017-04-28] MEDS ORDERED: MEASLES, MUMPS, RUBELLA VACCINE 0.5 ML VIAL SQ ONE (16:00)
[2017-04-28] MEDS ORDERED: DIPHTH/TETANUS/ACEL PERTUSSIS (BOOSTER) 0.5 ML VIAL/PFS IM ONE (16:00)
[2017-04-28] MEDS ORDERED: OXYC1TAB63 PO (17:38)
[2017-04-28] MEDS ORDERED: IBUP1TAB7 PO (17:38)
--- NOTE | 2017-04-28 17:39 | HHI.DCPOC ---
Discharge Care Plan Diagnosis: (1) Vaginal delivery Report Symptoms to Your Doctor -Temperature above 100.5 degrees -Redness, of incision or excessive or foul smelling drainage -Unusual pain or calf pain -Increased vaginal bleeding -Painful or difficulty urinating -Feelings of extreme sadness or anxiety after 2 weeks Goals to Promote Your Health * To prevent worsening of your condition and complications * To maintain your health at the optimal level Directions to Meet Your Goals Take your medications as prescribed Follow your dietary instruction Follow activity as directed Ensure plenty of rest for recovery Drink fluids for hydration Keep your appointments as scheduled Take your immunizations and boosters as scheduled If your symptoms worsen call your PCP, if no PCP go to Urgent Care Center or Emergency Room Smoking is Dangerous to Your Health. Avoid second hand smoke Call the 24-hour crisis hotline for domestic abuse at Marcell Palomino MD Apr 28, 2017 17:39
[2017-04-28] MEDS: SODIUM CHLORIDE 0.9% FLUSH 10 ML FLUSH IV FLUSH SCH (22:15)
[2017-04-28] MEDS ORDERED: AMMONIA AROMATIC INHALANT 0.33 ML ONE (22:30)
[2017-04-29 08:00] VITALS: BP 92/57; PULSE 94; RESP 16; TEMP 97.8; O2SAT 97
--- NOTE | 2017-04-29 08:12 | HHI.OB ---
Subjective Post Day: 1 Remarks no complaints, Objective Vitals/I&O Vital Signs Date Time Temp Pulse Resp B/P (MAP) Pulse Ox O2 Delivery O2 Flow Rate FiO2 04/28/17 20:00 98.5 70 18 100/65 (77) 96 04/28/17 17:50 96 111/72 (85) 04/28/17 17:50 97.7 16 96 04/28/17 16:37 81 112/50 (70) 04/28/17 16:16 85 97/76 (83) 04/28/17 16:00 97 111/68 (82) 04/28/17 15:46 80 114/61 (78) 04/28/17 15:40 100.0 04/28/17 15:31 94 111/74 (86) 04/28/17 14:35 100.0 04/28/17 14:30 18 04/28/17 14:16 73 118/74 (89) 04/28/17 14:00 66 137/65 (89) 04/28/17 13:50 66 04/28/17 13:46 121 116/67 (83) 04/28/17 13:45 18 04/28/17 13:42 99.4 04/28/17 13:31 62 120/58 (78) 04/28/17 13:16 69 127/62 (83) 04/28/17 13:01 98.7 18 04/28/17 13:00 64 112/61 (78) 04/28/17 12:45 18 04/28/17 12:45 63 119/73 (88) 04/28/17 12:30 65 114/64 (81) 04/28/17 12:15 66 108/63 (78) 04/28/17 12:01 82 91/69 (76) 04/28/17 11:56 80 116/87 (97) 04/28/17 11:16 86 131/70 (90) 04/28/17 11:15 18 04/28/17 11:00 75 122/65 (84) 04/28/17 10:52 63 117/60 (79) 04/28/17 10:46 71 92/44 (60) 04/28/17 10:31 76 104/67 (79) 04/28/17 10:16 80 131/80 (97) 04/28/17 10:04 98.9 04/28/17 10:01 69 123/72 (89) 04/28/17 10:00 18 04/28/17 09:47 77 120/75 (90) 04/28/17 09:45 16 04/28/17 09:31 98 116/88 (97) 04/28/17 09:16 62 130/52 (78) 04/28/17 09:10 58 04/28/17 09:05 65 04/28/17 09:01 61 103/46 (65) 04/28/17 09:00 66 04/28/17 08:55 75 04/28/17 08:54 219 100/79 (86) 04/28/17 08:50 88 04/28/17 08:46 131 126/75 (92) 04/28/17 08:45 84 04/28/17 08:40 71 04/28/17 08:37 75 126/76 (93) 04/28/17 08:35 78 04/28/17 08:34 80 118/64 (82) 04/28/17 08:30 78 118/65 (82) 04/28/17 08:30 72 04/28/17 08:27 67 120/69 (86) 04/28/17 08:25 71 04/28/17 08:24 73 115/72 (86) 04/28/17 08:21 71 120/75 (90) 04/28/17 08:20 75 04/28/17 08:19 71 97/66 (76) 04/28/17 08:16 87 132/72 (92) 04/28/17 08:15 84 Objective Remarks GENERAL: Well-nourished, well-developed patient. CARDIOVASCULAR: Regular rate and rhythm without murmurs, gallops, or rubs. RESPIRATORY: Breath sounds equal bilaterally. No accessory muscle use. ABDOMEN/GI: Abdomen soft, non-tender. Fundus: Firm, non-tender at umbilicus. GENITOURINARY: Light to moderate bleeding. EXTREMITIES: No cyanosis or edema, non-tender, without signs of DVT. Medications and IVs Current Medications Medications (Trade) Dose Ordered Sig/Melba Route Start Time Stop Time Status Last Admin (NS Flush) 2 ml BID IV FLUSH 04/28/17 21:00 04/28/17 22:15 (NS Flush) 2 ml UNSCH PRN IV FLUSH 04/28/17 15:30 (Tylenol) 650 mg Q4H PRN PO 04/28/17 15:30 (Motrin) 800 mg Q8H PRN PO 04/28/17 15:30 (Percocet 5-325 Mg) 1 tab Q4H PRN PO 04/28/17 15:30 (Percocet 5-325 Mg) 2 tab Q4H PRN PO 04/28/17 15:30 (Americaine 20% Top Spr) 1 spray Q4H PRN TOPICAL 04/28/17 15:30 (Tucks Pads) 1 applic QID PRN TOPICAL 04/28/17 15:30 (Ariana-Colace) 2 tab Q12H PRN PO 04/28/17 15:30 (Ambien) 5 mg HS PRN PO 04/28/17 15:30 (Mag-Al Plus Susp Liq) 15 ml Q8H PRN PO 04/28/17 15:30 (Zofran Odt) 4 mg Q6H PRN PO 04/28/17 15:30 Assessment/Plan Assessment and Plan Patient is 26-year-old white female at 40 -41 weeks s/p , PPD #1 cont pp care discharge this afternoon if baby OK Discharge Planning routine Attending Attestation pt seen by Nathalie Clayton MD Apr 29, 2017 08:12
[2017-04-29] MEDS: IBUPROFEN 800 MG TAB PO PRN ×2 (10:21→19:25)
[2017-04-29 19:00] VITALS: BP 124/69; PULSE 83; RESP 18; TEMP 98.4
[2017-04-29] MEDS: SODIUM CHLORIDE 0.9% FLUSH 10 ML FLUSH IV FLUSH SCH (22:40)
[2017-04-30] MEDS: IBUPROFEN 800 MG TAB PO PRN (08:39)
[2017-04-30] MEDS: SODIUM CHLORIDE 0.9% FLUSH 10 ML FLUSH IV FLUSH SCH (09:00)
--- NOTE | 2017-04-30 09:16 | HHI.OB ---
Subjective Post Day: 2 Remarks no complaints, ready for discharge Objective Vitals/I&O Vital Signs Date Time Temp Pulse Resp B/P (MAP) Pulse Ox O2 Delivery O2 Flow Rate FiO2 04/29/17 19:00 98.4 83 18 124/69 (87) Objective Remarks GENERAL: Well-nourished, well-developed patient. CARDIOVASCULAR: Regular rate and rhythm without murmurs, gallops, or rubs. RESPIRATORY: Breath sounds equal bilaterally. No accessory muscle use. ABDOMEN/GI: Abdomen soft, non-tender. Fundus: Firm, non-tender at umbilicus. GENITOURINARY: Light to moderate bleeding. EXTREMITIES: No cyanosis or edema, non-tender, without signs of DVT. Medications and IVs Current Medications Medications (Trade) Dose Ordered Sig/Melba Route Start Time Stop Time Status Last Admin (NS Flush) 2 ml BID IV FLUSH 04/28/17 21:00 04/28/17 22:15 (NS Flush) 2 ml UNSCH PRN IV FLUSH 04/28/17 15:30 (Tylenol) 650 mg Q4H PRN PO 04/28/17 15:30 (Motrin) 800 mg Q8H PRN PO 04/28/17 15:30 04/30/17 08:39 (Percocet 5-325 Mg) 1 tab Q4H PRN PO 04/28/17 15:30 (Percocet 5-325 Mg) 2 tab Q4H PRN PO 04/28/17 15:30 (Americaine 20% Top Spr) 1 spray Q4H PRN TOPICAL 04/28/17 15:30 04/29/17 10:21 (Tucks Pads) 1 applic QID PRN TOPICAL 04/28/17 15:30 04/29/17 10:21 (Ariana-Colace) 2 tab Q12H PRN PO 04/28/17 15:30 (Ambien) 5 mg HS PRN PO 04/28/17 15:30 (Mag-Al Plus Susp Liq) 15 ml Q8H PRN PO 04/28/17 15:30 (Zofran Odt) 4 mg Q6H PRN PO 04/28/17 15:30 Assessment/Plan Assessment and Plan Patient is 26-year-old white female at 40 -41 weeks s/p , PPD #2 cont pp care discharge today Discharge Planning routine Attending Attestation pt seen by me Nathalie Jerez MD Apr 30, 2017 09:16
[2017-04-30 09:20] VITALS: BP 120/84; PULSE 69; TEMP 97.9; O2SAT 98
== END 2017-04-30 13:47 | disposition home or self-care (01) | DRG 775 ==
LOC: HOBED 05:54 → H2EA 07:06 → H2EB 07:20 → H1EA 16:59
PROVIDERS: ADMIT Obstetrics & Gynecology; ATTEND Obstetrics & Gynecology
PROC: 10D07Z6 Extraction of Products of Conception, Vacuum, Via Natural or Artificial Opening (ICD-10-PCS; principal; 2017-04-28)
PROC: 0W8NXZZ Division of Female Perineum, External Approach (ICD-10-PCS; 2017-04-28)
PROC: 3E0R3BZ Introduction of Anesthetic Agent into Spinal Canal, Percutaneous Approach (ICD-10-PCS; 2017-04-28)
PROC: 00HU33Z Insertion of Infusion Device into Spinal Canal, Percutaneous Approach (ICD-10-PCS; 2017-04-28)
DX: O24.420 Gestational diabetes mellitus in childbirth, diet controlled (principal); O77.0 Labor and delivery complicated by meconium in amniotic fluid; Z37.0 Single live birth; Z3A.40 40 weeks gestation of pregnancy
CPT/HCPCS: 80307; 81001; 85025; 86900; 86901; 87086; 88307; 90715; 99285; J3010; J7120